=== PATIENT | female | born 1970 | race Caucasian/White ===

== ENCOUNTER 2019-01-07 15:57 | Emergency (ER) | payer BC, OTHER ==
[~2019-01-07] VITALS: Ht 172.7 cm; Wt 67.8 kg
[2019-01-07 16:00] VITALS: BP 119/73
[2019-01-07] MEDS ORDERED: LIDOCAINE-MPF 1%, 5ML ONE (16:08)
[2019-01-07] MEDS ORDERED: DIPH,PERTUSS(ACELL),TET VAC/PF 0.5 ML IM-VACC ONE ×2 (16:08→16:30)
[2019-01-07] MEDS ORDERED: LORazepam 1MG TABLET ONE (16:12)
[2019-01-07] MEDS ORDERED: LIDOCAINE-MPF 1%, 5ML INFIL ONE (16:30)
[2019-01-07] MEDS ORDERED: CEFAZOLIN 1,000 MG IM ONE (17:00)
[2019-01-07] MEDS ORDERED: LORazepam 1MG TABLET PO ONE (17:00)
[2019-01-07] MEDS ORDERED: CEFAZOLIN 1,000 MG ONE (17:03)
[2019-01-07] MEDS ORDERED: BACITRACIN ZINC OINT 500U/GM, 0.9 GM ONE (17:27)
== END 2019-01-07 17:39 | disposition home or self-care (01) ==
LOC: ED 17:30
DX: S91.112A Laceration without foreign body of left great toe without damage to nail, initial encounter (principal); Z89.022 Acquired absence of left finger(s); Z88.0 Allergy status to penicillin; W45.8XXA Other foreign body or object entering through skin, initial encounter; Y93.89 Activity, other specified; Y92.89 Other specified places as the place of occurrence of the external cause; Y99.8 Other external cause status
CPT/HCPCS: 11760; 73140; 90471; 90715; 96372; 99284; J0690; 12041; 99283